=== PATIENT | female | born 1985 | race Asian ===

== ENCOUNTER 2016-04-28 15:47 | Emergency (ER) | payer OTHER ==
--- NOTE | 2016-04-28 16:18 | ER Document Report ---
ED Medical Screen (RME) - General Stated Complaint: FALL/LEFT RIB PAIN Mode of Arrival: Ambulatory Information source: Patient Notes: Patient complains of rib pain after snowboarding. Patient states this occurred one week ago. Patient with left lower rib tenderness. Patient complains of pain with deep inspiration. hx: None I have greeted and performed a rapid initial assessment of this patient. A comprehensive ED assessment and evaluation of the patient, analysis of test results and completion of the medical decision making process will be conducted by additional ED providers. Physical Exam - Vital signs Vitals: Temp Pulse Resp BP Pulse Ox 98.7 F 64 16 125/72 100 04/28/16 15:54 04/28/16 15:54 04/28/16 15:54 04/28/16 15:54 04/28/16 15:54 - Respiratory Chest status: Tender - Left lower anterior rib tenderness Course - Vital Signs Vital signs: Temp Pulse Resp BP Pulse Ox 98.7 F 64 16 125/72 100 04/28/16 15:54 04/28/16 15:54 04/28/16 15:54 04/28/16 15:54 04/28/16 15:54
[2016-04-28] MEDS ORDERED: IBUPROFEN 600 MG TABLET PO ONE (18:34)
--- NOTE | 2016-04-28 18:36 | ER Document Report ---
ED General - General Chief Complaint: Rib Pain Stated Complaint: FALL/LEFT RIB PAIN Mode of Arrival: Ambulatory Notes: Patient is a 30-year-old female without past history presents with 1 week of left lower rib pain. States that she was snowboarding a week ago and she had a fall striking her left lower ribs on a rock. States that since that time she has had a dull, constant, throbbing pain to the area and given that it was not resolving she wanted to be sure that she did not have any acute fractures. No history of similar injury in the past. States taking a deep breath or moving worsens the pain. Nothing improves the pain. She is not seen in her primary care physician regarding today's concerns. TRAVEL OUTSIDE OF THE [place] IN LAST 30 DAYS: No - Related Data Allergies/Adverse Reactions: No Known Allergies Allergy (Verified 04/28/16 16:17) Past Medical History - General Information source: Patient - Social History Smoking Status: Never Smoker Chew tobacco use (# tins/day): No Frequency of alcohol use: None Drug Abuse: None Lives with: Spouse/Significant other Family History: Reviewed & Not Pertinent Patient has suicidal ideation: No Patient has homicidal ideation: No Renal/ Medical History: Denies: Hx Peritoneal Dialysis Review of Systems - Review of Systems Notes: Constitutional: Negative for fever. Eyes: Negative for visual changes. ENT: Negative for facial injury Cardiovascular: Negative for chest injury. Respiratory: Negative for shortness of breath. Gastrointestinal: Negative for abdominal injury. Genitourinary: Negative for genital injury Musculoskeletal: Positive for left lower rib injury Skin: Negative for laceration/abrasions. Neurological: Negative for head injury. Physical Exam - Vital signs Vitals: Temp Pulse Resp BP Pulse Ox 98.7 F 64 16 125/72 100 04/28/16 15:54 04/28/16 15:54 04/28/16 15:54 04/28/16 15:54 04/28/16 15:54 Interpretation: Normal Notes: PHYSICAL EXAMINATION: GENERAL: Well-appearing, well-nourished and in no acute distress. HEAD: Atraumatic, normocephalic. EYES: Pupils equal round and reactive to light, extraocular movements intact, sclera anicteric, conjunctiva are normal. ENT: nares patent, oropharynx clear without exudates. Moist mucous membranes. NECK: Normal range of motion, supple without lymphadenopathy LUNGS: Breath sounds clear to auscultation bilaterally and equal. No wheezes rales or rhonchi. HEART: Regular rate and rhythm without murmurs Chest wall: Pain on palpation of the left ninth and 10th rib space. No ecchymosis or deformity ABDOMEN: Soft, nontender, normoactive bowel sounds. No guarding, no rebound. No masses appreciated. EXTREMITIES: Normal range of motion, no pitting or edema. No cyanosis. NEUROLOGICAL: No focal neurological deficits. Moves all extremities spontaneously and on command. PSYCH: Normal mood, normal affect. SKIN: Warm, Dry, normal turgor, no rashes or lesions noted. Course - Re-evaluation Re-evalutation: 04/28/16 18:35 Patient presents with left lower rib pain after hitting them while snowboarding a week ago. States she's continued to have pain so she came to the emergency department for further evaluation to ensure that she did not have rib fractures. Patient does not demonstrate any acute fractures although I have informed her this is a clinical diagnosis and that given her ongoing pain she may have small factors versus bruising of the ribs. She is overall breathing well, no tachypnea, hypoxemia, or difficulty taking deep breaths. She has no abdominal tenderness, specifically no left upper quadrant tenderness to suggest splenic injury.At this time will discharge with return precautions and follow- up recommendations. Verbal discharge instructions given a the bedside and opportunity for questions given. Medication warnings reviewed. Patient is in agreement with this plan and has verbalized understanding of return precautions and the need for primary care follow-up in the next 24-72 hours. - Vital Signs Vital signs: Temp Pulse Resp BP Pulse Ox 98.5 F 63 14 129/72 H 100 04/28/16 18:43 04/28/16 18:43 04/28/16 18:43 04/28/16 18:43 04/28/16 18:43 - Diagnostic Test Radiology reviewed: Image reviewed, Reports reviewed Radiology results interpreted by me: 04/29/16 03:15 Chest x-ray: No acute fracture or pneumothorax Discharge - Discharge Clinical Impression: Rib injury, Rib pain on left side Condition: Good Disposition: HOME, SELF-CARE Additional Instructions: Your chest wall pain is due to bruising of your ribs. This pain can last for up to 6 weeks. It is very important that you continue to take purposeful deep breaths. For your pain: Continue to take ibuprofen 600 mg every 6 hours or Tylenol 1000 mg every 6 hours. Apply local lidocaine to the area per bottle instructions. There is a product sold [id number] called "Aspercreme with lidocaine" that you can use for this purpose. Please follow-up with her primary care doctor in the next 2-3 days. Return to the emergency department immediately if you develop worsening shortness of breath, increased pain, begin coughing blood, pass out, or have any other symptoms that are worrisome to you.
[2016-04-28 19:00] VITALS: BP 129/72
== END 2016-04-28 18:43 | disposition home or self-care (01) ==
LOC: ER 15:47
DX: S29.9XXA Unspecified injury of thorax, initial encounter (principal); R07.81 Pleurodynia; W19.XXXA Unspecified fall, initial encounter
CPT/HCPCS: 99283